=== PATIENT | male | born 1970 | race Caucasian/White ===

== ENCOUNTER → 2016-06-23 | Outpatient (CLI) | payer BC ==
--- NOTE | 2016-06-23 16:08 | REP ---
Clinical: Pain. Technique: AP, lateral, bilateral oblique views of the left wrist. Findings: No obvious acute fracture or dislocation. Moderate degenerative changes are appreciated including chondrocalcinosis and joint space narrowing primarily involving the radiocarpal joint line and carpometacarpal joints. Impression: Moderate degenerative changes. No obvious acute fracture or dislocation. Signed by Nimesh Simon MD 06/23/2016 04:00 P
== END ==
LOC: M ADAMS 15:38
PROVIDERS: ATTEND Physician Assistant
DX: M25.532 Pain in left wrist (principal)

== ENCOUNTER → 2016-12-27 | Outpatient (CLI) | payer BC ==
--- NOTE | 2016-12-27 10:18 | REP ---
Right ankle series: Four views. History: Sprain. Pain mostly medially. Findings: Four views of the right ankle demonstrate an intact ankle mortise. There is some medial and anterior soft tissue swelling at the ankle. No fracture is seen. There is mild tibiotalar spurring. On mortise view, there is a subcortical cyst in the medial talar dome. This may reflect a small osteochondral defect lesion. This appears chronic. Heel spurs are noted both Achilles and plantar. There is minimal midfoot spurring. Some dystrophic calcification is seen on oblique radiograph below the distal fibula. Impression: There is a subcortical cyst 5 mm in diameter in the medial talar dome and there is some tibiotalar osteoarthritic spurring. No fracture is seen. I cannot exclude a small osteochondral defect lesion in the medial talar dome. Heel spurs are also noted. Mild midfoot spurring. No fracture seen. Signed by Seferino Sprague MD 12/27/2016 11:24 A
== END ==
LOC: M ADAMS 09:47
PROVIDERS: ATTEND Physician Assistant
DX: S93.401A Sprain of unspecified ligament of right ankle, initial encounter (principal); X58.XXXA Exposure to other specified factors, initial encounter; Y92.89 Other specified places as the place of occurrence of the external cause; Y99.9 Unspecified external cause status

== ENCOUNTER → 2017-07-22 | Outpatient (CLI) | payer BC | LOC: M ADAMS 08:57 | DX: M25.422 Effusion, left elbow (principal) | CPT/HCPCS: 73080 ==

== ENCOUNTER → 2020-04-26 | Outpatient (CLI) | payer SELFPAY | LOC: M LABSMTC 10:39 | PROVIDERS: ATTEND Pediatrics | DX: Z20.822 Contact with and (suspected) exposure to COVID-19 (principal) ==

== ENCOUNTER → 2022-12-06 | Outpatient (CLI) | payer BC | LOC: M PLAIMG 13:06 | PROVIDERS: ATTEND Physician Assistant | DX: S09.90XA Unspecified injury of head, initial encounter (principal); R51.9 Headache, unspecified ==

== ENCOUNTER 2023-09-18 11:15 | Emergency (ER) | payer OTHER, SELFPAY ==
[~2023-09-18] VITALS: Ht 180.3 cm; Wt 112.0 kg
[2023-09-18 11:17] VITALS: TEMP 98.4
[2023-09-18] MEDS: ACETAMINOPHEN 500 MG TAB PO ONE (12:55)
[2023-09-18] MEDS: DERMABOND TOPICAL SKIN ADHESIVE TOP ONE (13:26)
[2023-09-18 13:42] LABS: BASO % 0.5 % (0.0-1.0); EOS # 0.1 10^3/uL (0.0-0.5); EOS % 3.3 % (0.0-3.0); HEMATOCRIT 40.2 % (42.0-52.0); HEMOGLOBIN 13.6 g/dl (13.5-17.5); LYMPH # 0.5 10^3/uL (1.5-5.0); LYMPH % 11.6 % (24.0-44.0); MEAN CORPUSCULAR HEMOGLOBIN 33.2 pg (27.0-33.0); MEAN CORPUSCULAR HGB CONC 33.8 g/dl (32.0-36.5); MONO # 0.5 10^3/uL (0.0-0.8); MONO % 12.1 % (2.0-8.0); NEUTROPHILS # 3.1 10^3/uL (1.5-8.5); NEUTROPHILS % 72.3 % (36.0-66.0); PLATELET COUNT, AUTOMATED 176 10^3/uL (150-450); WHITE BLOOD COUNT 4.2 10^3/uL (4.0-10.0)
[2023-09-18] MEDS ORDERED: ISOVUE-370 76% 100ML VIAL As Ordered ONE (13:45)
[2023-09-18] MEDS: ONDANSETRON 4MG TAB PO ONE (15:17)
[2023-09-18] MEDS ORDERED: ONDA-282 PO (15:26)
[2023-09-18 15:51] VITALS: BP 122/86; O2SAT 100
== END 2023-09-18 16:13 | disposition home or self-care (01) ==
LOC: M ED 11:15
DX: S01.01XA Laceration without foreign body of scalp, initial encounter (principal); S06.0X0A Concussion without loss of consciousness, initial encounter; R59.0 Localized enlarged lymph nodes; W22.8XXA Striking against or struck by other objects, initial encounter; Y92.9 Unspecified place or not applicable; Y93.89 Activity, other specified; Y99.0 Civilian activity done for income or pay; M19.90 Unspecified osteoarthritis, unspecified site; Z88.2 Allergy status to sulfonamides; Z88.8 Allergy status to other drugs, medicaments and biological substances
CPT/HCPCS: 70450; 71260; 72125; 80047; 85025; 99284; Q9967

== ENCOUNTER → 2023-12-02 | Outpatient (CLI) | payer BC ==
[~2023-12-02] MED LIST: ISOVUE-370 76% 100ML VIAL ONE; ONDA-282 PO
== END ==
LOC: M PLAIMG 09:23
PROVIDERS: ATTEND Nurse Practitioner Family
DX: R59.1 Generalized enlarged lymph nodes (principal); J98.11 Atelectasis
CPT/HCPCS: 70491; 71260; Q9967

== ENCOUNTER → 2024-02-13 | Outpatient (CLI) | payer BC ==
[~2024-02-13] MED LIST changes: -ISOVUE-370 76% 100ML VIAL ONE
[2024-02-13 19:50] LABS: BASO % 1.1 % (0.0-1.0); EOS # 0.3 10^3/uL (0.0-0.5); EOS % 7.6 % (0.0-3.0); HEMATOCRIT 45.1 % (42.0-52.0); HEMOGLOBIN 15.4 g/dl (13.5-17.5); LYMPH # 0.7 10^3/uL (1.5-5.0); LYMPH % 17.9 % (24.0-44.0); MEAN CORPUSCULAR HEMOGLOBIN 31.7 pg (27.0-33.0); MEAN CORPUSCULAR HGB CONC 34.1 g/dl (32.0-36.5); MEAN CORPUSCULAR VOLUME 92.8 fl (80.0-96.0); MONO # 0.5 10^3/uL (0.0-0.8); MONO % 14.2 % (2.0-8.0); NEUTROPHILS # 2.2 10^3/uL (1.5-8.5); NEUTROPHILS % 58.4 % (36.0-66.0); PLATELET COUNT, AUTOMATED 219 10^3/uL (150-450); RED BLOOD COUNT 4.86 10^6/uL (4.30-6.10); WHITE BLOOD COUNT 3.8 10^3/uL (4.0-10.0)
[2024-02-13 19:57] LABS: ERYTHROCYTE SEDIMENTATION RATE 17 mm/hr (0-20)
[2024-02-13 20:06] LABS: C REACTIVE PROTEIN QUANTITATIV < 0.40 MG/DL (<1.0)
[2024-02-13 20:07] LABS: LDH LACTATE DEHYDROGENASE 168 U/L (120-246)
[2024-02-13 21:40] LABS: RHEUMATOID FACTOR QUANT 3.7 IU/ML (<14)
== END ==
LOC: M LABDRWAD 11:47
PROVIDERS: ATTEND Otolaryngology
DX: R59.0 Localized enlarged lymph nodes (principal)